=== PATIENT | female | born 2000 | race Caucasian/White ===

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

== ENCOUNTER 2018-08-09 23:16 | Emergency (ER) | payer SELFPAY ==
[2018-08-09] MEDS ORDERED: POVIDONE IODINE 10 % 15 ML UD TOP ONE (23:27)
[2018-08-09 23:44] VITALS: TEMP 97.6
--- NOTE | 2018-08-09 23:46 | ED.PDOC ---
History of Present Illness - General Chief Complaint: Skin/Abrasion/Tear Stated Complaint: right thumb jammed in car door Time Seen by Provider: 08/09/18 23:38 Source: patient Exam Limitations: no limitations - History of Present Illness Initial Comments: Francisco Lazo 18 y/o female stated that she accidentally jammed her right thumb on their car door about one hour ago.Noted sharp pain/and bleeding right thumb after incident. Timing/Duration: just prior to arrival Severity: mild Location: hands - right thumb Improving Factors: rest Worsening Factors: movement Associated Symptoms: denies symptoms Allergies/Adverse Reactions: Allergies NO KNOWN ALLERGY Allergy (Verified 06/14/16 12:28) Home Medications: Ambulatory Orders Cephalexin 500 mg PO BID 7 Days #14 cap 08/10/18 Review of Systems - Review of Systems Constitutional: States: no symptoms reported EENTM: States: no symptoms reported Respiratory: States: no symptoms reported Skin: States: see HPI Neurological: States: no symptoms reported Past Medical History (General) - Patient Medical History Hx Seizures: No Hx Stroke: No Hx Dementia: No Hx Asthma: No Hx of COPD: No Hx Cardiac Disorders: No Hx Congestive Heart Failure: No Hx Pacemaker: No Hx Hypertension: No Hx Thyroid Disease: No Hx Diabetes: No Hx Gastroesophageal Reflux: No Hx Renal Disease: No Hx of HIV: No Hx MRSA: No Surgical History: tonsillectomy - Vaccination History Hx Tetanus, Diphtheria Vaccination: No Hx Influenza Vaccination: No Hx Pneumococcal Vaccination: No Immunizations Up to Date: No - Social History Hx Tobacco Use: No Hx Alcohol Use: No Hx Substance Use: No Hx Substance Use Treatment: No Hx Depression: No - Female History Patient is a Female of Child Bearing Age (10 -59 yrs old): Yes Hx Last Menstrual Period: 06/20/18 Patient : No Family Medical History - Family History Mother Family History: No Known Living Status: Still Living Physical Exam - Physical Exam General Appearance: Alert, Comfortable, No apparent distress Eyes, Ears, Nose, Throat Exam: normal ENT inspection Neck: full range of motion, supple, normal inspection Cardiovascular/Chest: normal peripheral pulses, regular rate, rhythm, no murmur Respiratory: lungs clear, normal breath sounds Gastrointestinal/Abdominal: normal bowel sounds, non tender, soft, no organomegaly Back Exam: no CVA tenderness Extremity: no pedal edema, no calf tenderness, other - tenderness right thumb with skin tear and supeficial skin tear Neurologic: alert, oriented x 3 Progress - Progress Progress: 08/10/18 00:20 Vital Signs - 8 hr 08/09/18 23:34 Temperature 97.6 F Pulse Rate [ 98 H left] Respiratory 18 Rate Blood Pressure 128/91 [left] O2 Sat by Pulse 95 Oximetry - EKG/XRAY/CT XRAY: right thumb-no acute findings - / radiologist Xray Comments: discuss x ray result findings to patient given copy of report Departure - Departure Clinical Impression: Skin tear of upper extremity Contusion of thumb without damage to nail Qualifiers: Encounter type: initial encounter Laterality: right Qualified Code(s): S60.011A - Contusion of right thumb without damage to nail, initial encounter Time of Disposition: 00:24 Disposition: Discharge to Home or Self Care Condition: Fair Departure Forms: ED Discharge - Pt. Copy, Patient Portal Self Enrollment Instructions: DI for Abrasion, Contusion (DC) Prescriptions: Cephalexin 500 mg PO BID 7 Days #14 cap Home Medications: Ambulatory Orders Cephalexin 500 mg PO BID 7 Days #14 cap 08/10/18 Additional Instructions: May take over the counter Aleve(naproxen) 1-2 tablets am pm as needed for pain;Ice pack to affected area 10 minutes 3 x a day during waking hours only for 3 days as needed May apply antibiotic ointment over the counter am/pm until better;change wound dressing after 2 days 11 Aug 2018 may use band aid over the counter
[2018-08-09] MEDS: TETANUS,DIPHTHERIA,PERTUSSIS 1 EA SYG IM ONE (23:54)
[2018-08-09] MEDS: HYDROcodone 7.5MG/APAP 325MG 1 EA TAB PO ONE (23:55)
[2018-08-09] MEDS: CEPHALEXIN MONOHYDRATE 500 MG CAP PO ONE (23:55)
[2018-08-10] MEDS ORDERED: NEOMYCIN-BACITRACIN-POLYMYXIN 0.9 GM UD TOP ONE
--- NOTE | 2018-08-10 00:07 | RAD ---
EXAM DESCRIPTION: Thumb,Right CLINICAL HISTORY: 18 years Female, jammed finger in car door, knuckle swollen, numb COMPARISON: None. FINDINGS: No evidence for an acute fracture. No dislocation. Surrounding soft tissues are unremarkable. IMPRESSION: No acute findings. Electronically signed by: Amador Vaca MD 08/10/2018 12:04 AM CDT
[2018-08-10 00:37] VITALS: BP 132/85; O2SAT 99
== END 2018-08-10 00:36 | disposition home or self-care (01) ==
LOC: ER 23:16
DX: S61.001A Unspecified open wound of right thumb without damage to nail, initial encounter (principal); W23.0XXA Caught, crushed, jammed, or pinched between moving objects, initial encounter; Y92.810 Car as the place of occurrence of the external cause